=== PATIENT | male | born 1990 | race Asian ===

== ENCOUNTER 2019-08-09 23:54 | Emergency (ER) | payer SELFPAY ==
[~2019-08-09] VITALS: Ht 175.3 cm; Wt 75.0 kg
[2019-08-10] MEDS ORDERED: BACITRACIN ZINC OINT UDPKT TOP ONE (03:00)
[2019-08-10] MEDS ORDERED: IBUPROFEN 600MG TABLET PO ONE (03:45)
[2019-08-10] MEDS ORDERED: BACITRACIN 15GM TUBE TOP NR (04:00)
[2019-08-10 04:10] VITALS: BP 128/79
== END 2019-08-10 04:20 | disposition home or self-care (01) ==
LOC: ER 23:54
DX: L02.411 Cutaneous abscess of right axilla (principal); L03.111 Cellulitis of right axilla; F12.10 Cannabis abuse, uncomplicated; F17.290 Nicotine dependence, other tobacco product, uncomplicated
CPT/HCPCS: 10060; 99283; Z7610

== ENCOUNTER 2022-03-07 09:14 | Emergency (ER) | payer MEDICAID ==
[~2022-03-07] VITALS: Ht 175.3 cm; Wt 87.0 kg
[2022-03-07 09:19] VITALS: BP 133/87
[2022-03-07] MEDS ORDERED: AZITHROMYCIN 500 MG TABLET PO ONE (09:45)
[2022-03-07] MEDS ORDERED: CEFTRIAXONE SODIUM 500 MG/VIAL IM ONE (09:45)
[2022-03-07 10:10] LABS: CLARITY URINE CLEAR (CLEAR); COLOR URINE YELLOW (YELLOW); KETONES URINE TRACE (NEGATIVE); LEUKOCYTE ESTERASE URINE NEGATIVE (NEGATIVE); NITRITE URINE NEGATIVE (NEGATIVE); OCCULT BLOOD URINE NEGATIVE (NEGATIVE); PH URINE 6.5 (4.5-8.0); PROTEIN URINE NEGATIVE (NEGATIVE); SPECIFIC GRAVITY URINE 1.026 (1.005-1.030)
[2022-03-09 04:09] LABS: NEISSERIA GONORRHOEAE NAA Negative (Negative)
== END 2022-03-07 10:35 | disposition home or self-care (01) ==
LOC: ER 09:14
DX: N34.2 Other urethritis (principal); R03.0 Elevated blood-pressure reading, without diagnosis of hypertension; F12.90 Cannabis use, unspecified, uncomplicated
CPT/HCPCS: 81003; 87491; 87591; 96372; 99283; J0696